=== PATIENT | male | born 1945 | race Caucasian/White ===

== ENCOUNTER 2020-10-04 19:21 | Inpatient (IN) | payer MEDICARE ==
[~2020-10-04] VITALS: Ht 182.9 cm; Wt 83.9 kg
--- NOTE | 2020-10-04 19:27 | NUR ---
Dr. Moulton at bedside for MSE.
[2020-10-04] MEDS ORDERED: ACET-2154 PO (19:38)
[2020-10-04] MEDS ORDERED: ATOR20TA PO (19:38)
[2020-10-04] MEDS ORDERED: LISI20TA30 PO (19:38)
[2020-10-04] MEDS ORDERED: MAG30ORA PO (19:38)
[2020-10-04] MEDS ORDERED: NICO1PAT44 TP (19:38)
--- NOTE | 2020-10-04 20:17 | NUR ---
Patient will be going to MHU room 145B
--- NOTE | 2020-10-04 20:49 | NUR ---
Report given to CADE Mtz @ [facility]. Per charhouse worker patient will be transported to inpatient in about 30 minutes.
--- NOTE | 2020-10-04 21:34 | NUR ---
Patient transported to MHU in stable condition.
[2020-10-04] MEDS ORDERED: ACETAMINOPHEN 325 MG TABLET PO PRN (21:45)
[2020-10-04] MEDS ORDERED: MAGNESIUM HYDROXIDE 30 ML LIQUID UDC PO PRN (21:45)
[2020-10-04] MEDS ORDERED: MAG HYDROX/AL HYDROX/SIMETH 30 ML LIQUID UDC PO PRN (21:45)
[2020-10-04] MEDS ORDERED: BLOOD SUGAR DIAGNOSTIC 1 EACH STRIP VI ONE (21:45)
[2020-10-04] MEDS ORDERED: TEMAZEPAM 7.5 MG CAPSULE PO PRN (21:45)
[2020-10-04 21:47] VITALS: BP 119/80
[2020-10-04] MEDS ORDERED: ASPI81TA31 PO (21:58)
--- NOTE | 2020-10-04 23:00 | NUR ---
GPS NOTE: Patient is a 73 year old male, brought in by ambulance on a 5150 from [facility]. Patient is on a 5150 for DTO. Per hold, the traffic control specialist department was sent out to the patients residence because he was threatening " To kill my girlfriend " with a knife. Patient stated " I can't take this anymore. I am going to kill her". " I am at the point where I can't control it". It is noted that the patient was under the influence of alcohol at that time. Upon face to face evaluation, the patient was calm and cooperative. Oriented to the situation and was telling the functional tester typewriters that he drinks daily. He has had the same girlfriend for many years and all she does is sit around the place and " Insults me". Patients appearance was disheveled and unkept, smelling of cigarettes. The patient claimed to be a pack a day smoker, with only medical history being hypertension. This functional tester typewriters was able to engage in meaningful conversation with the patient, oriented him to the rules of the unit and provided him with an Advisement and Patients right handbook. VS are stable and patients belongings were locked up in the safe. The patient had a snack and a shower , the went to bed. Rubber Mixer is continuing to round frequently and monitor patient for safety and any assaultive or combative behavior. None noted at this time.
[2020-10-05 07:30] VITALS: BP 140/84
[2020-10-05 08:00] VITALS: BP 140/84
[2020-10-05] MEDS: LORAZEPAM 0.5 MG TABLET PO PRN ×2 (08:33→21:07)
[2020-10-05] MEDS ORDERED: NICOTINE 21 MG/24HR PATCH TD SCH (09:00)
[2020-10-05 16:00] VITALS: BP 122/71
[2020-10-05 20:00] VITALS: BP 136/88
[2020-10-05] MEDS: GABAPENTIN 100 MG CAPSULE PO SCH (21:07)
--- NOTE | 2020-10-06 06:25 | NUR ---
Received patient, calm and cooperative . Bar Manager assisted patient at the start of the shift to call his girlfriend. The conversation seemed pleasant and no arguing was observed. Patient slept for 8.15 hours. No behavioral escalation noted by this physician underwriter since the patient was admitted.
[2020-10-06 07:30] VITALS: BP 125/84
--- NOTE | 2020-10-06 08:00 | NUR ---
received report from CADE Mtz. All questions, comments, and concerns were addressed. Received patient resting quietly in his assigned bed. bed is in low and locked position. patient is arousable to name.
[2020-10-06] MEDS: ATORVASTATIN 20 MG TABLET PO SCH (08:55)
[2020-10-06] MEDS: ASPIRIN 81 MG TAB.CHEW PO SCH (08:55)
[2020-10-06] MEDS: LISINOPRIL 20 MG TABLET PO SCH (08:55)
[2020-10-06] MEDS: NICOTINE 14 MG/24HR PATCH TD SCH (08:55)
--- NOTE | 2020-10-06 10:26 | NUR ---
Firearms Report: Brine Supervisor completed and submitted a [employer] firearms report for 5150 grave disability certification. A copy of report has been placed in patient chart.
--- NOTE | 2020-10-06 10:42 | NUR ---
patient is alert and oriented. this patient is cooperative, redirectable and has pleasant interaction with staff. he is anxious. patient is adherent with medication, no adverse reaction noted. dressed appropriately in hospital gown. denies SI/HI, denies AH/VH. patient is able to tolerate food and fluids. he is able to ambulate independently and is motivated to perform self care and ADL's. patient encouraged to participate in the unit therapeutic milieu and groups. educated about impulse control.
--- NOTE | 2020-10-06 10:52 | NUR ---
SW Family Contact: Patient does not have any family contact at this time.
--- NOTE | 2020-10-06 10:52 | NUR ---
SW Initial Discharge Plan: Patient currently resides at [address], [place] [address]; ([phone]). Patient does not have any family to contact at this time. Patient would want this SW to find him a nursing facility. This SW will work with the MD and treatment team to help coordinate proper discharge.
--- NOTE | 2020-10-06 10:53 | NUR ---
SW Substance Abuse Intervention: Patient was provided with a brief substance abuse intervention and referred to [facility] ([phone]), [facility] ([phone]), and [facility] ([phone]). Patient expressed that he has been drinking beer frequently and has started drinking at the age of 14.
--- NOTE | 2020-10-06 11:14 | NUR ---
[facility]'s Department: This SW contacted [facility] ([phone]) to confirm if weapons are in patient's house per 5150 hold. Per 5150 hold, deputy Banegas was at patient's resident, however, crisis retail event assistant Sreedhar Salter ([phone]) noted "weapons are not secured". This SW spoke with evan Loera ([phone]) who requested for Deputy Banegas to contact this SW to confirm more information if weapons are removed or not.
--- NOTE | 2020-10-06 11:18 | NUR ---
SNF Referral: This SW faxed clinicals to Cecelia from [facility] ([phone]) for placement. This SW faxed H & P notes, progress notes, and medication list.
--- NOTE | 2020-10-06 12:56 | NUR ---
[place] Contact: This SW spoke with Deputy Banegas (Nelson #[id number]) who stated that patient had a fishing knife at home and that they do not confiscate it.
--- NOTE | 2020-10-06 13:04 | NUR ---
SNF Referral: This SW received a phone call from Cecelia at [facility] ([phone]) who stated patient is accepted.
[2020-10-06 15:12] VITALS: BP 140/84
--- NOTE | 2020-10-06 15:33 | NUR ---
Individual Therapy: household worker met with patient for brief counseling and assessed for patient's presenting problem aggressive behavior. Patient appeared to be sad and withdrawn. Patient was calm and cooperative, however, patient appeared quiet and did not verbalize with this SW. Patient wanted to rest.
[2020-10-06] MEDS: GABAPENTIN 100 MG CAPSULE PO SCH (20:21)
[2020-10-06 20:30] VITALS: BP 136/74
--- NOTE | 2020-10-07 06:29 | NUR ---
Gps: Remain calm and cooperative . Patient slept for 8 hours. No behavioral escalation noted by this bond writer since the patient was admitted.
[2020-10-07 07:30] VITALS: BP 112/62
[2020-10-07] MEDS: ASPIRIN 81 MG TAB.CHEW PO SCH (08:25)
[2020-10-07] MEDS: NICOTINE 14 MG/24HR PATCH TD SCH (08:25)
[2020-10-07] MEDS: ATORVASTATIN 20 MG TABLET PO SCH (08:26)
[2020-10-07] MEDS: LISINOPRIL 20 MG TABLET PO SCH (08:26)
--- NOTE | 2020-10-07 10:48 | NUR ---
JODY Family Contact: This SW received a phone call from patient's significant other Poonam ([phone]) and she insisted on patient being discharged from the hospital today. She stated he is feeling well and needs to come back home. Poonam expressed that she is not feeling well and needs patient home. This SW expressed that if she is feeling unwell to call 911 or go to the nearest ER. Poonam stated "No, not like that, I need him not the ER or 911". JODY educated her about the 5150 hold and she stated she is aware. JODY expressed patient will need to continue his treatment here at the hospital until discharged. JODY is concerned about the patient's home environment and will make an APS report.
--- NOTE | 2020-10-07 10:56 | NUR ---
APS Report: This SW made an APS report through [facility] (Intake ID [id number]) for suspected neglect of care at home.
--- NOTE | 2020-10-07 13:34 | NUR ---
SW Note: This SW spoke with patient in regards to his discharge planning. Patient appeared confused and disorganized. He did state that "I do not want to go back home and I do not have a girlfriend". This SW expressed that if he would want this SW to find him a nursing facility he stated "yes, I want to continue my care".
[2020-10-07] MEDS ORDERED: LORAZEPAM 1 MG TABLET PO PRN (14:15)
--- NOTE | 2020-10-07 15:40 | NUR ---
SW Coordination of Care: This fha underwriter spoke with back shoe worker Sudha to arrange appointment. Patient will follow up at [facility], Jess Rivera PA-C, Fortino Rivera Jr., M.D located at [address] [place] [address] [address] [address]; ([phone]) with (Mri Supervisor) Dr. Rivera on October 2:30PM. This SW requested to refer pt to a psychiatrist. This SW faxed clinical to the office (F: [phone]).
[2020-10-07 16:00] VITALS: BP 100/69
--- NOTE | 2020-10-07 16:56 | NUR ---
patient is alert and oriented x3, denies any SI/HI.patient compliant with all AM medication, remains clam and cooperative behavioral .attendance and participated group activity ,talking about discharge plan with psychiatrist. will continue close monitoring.
[2020-10-07 20:26] VITALS: BP 107/65
[2020-10-07] MEDS: GABAPENTIN 100 MG CAPSULE PO SCH (20:37)
--- NOTE | 2020-10-08 06:29 | NUR ---
Gps: Remain calm and cooperative . Patient slept for 7 hours through the night. No behavioral escalation noted. slept 7 hrs through the night.
[2020-10-08 07:06] LABS: BASOPHILS % (AUTO) 0.7 % (0.0-2.0); EOSINOPHILS # (AUTO) 0.3 K/uL (0.0-0.7); EOSINOPHILS % (AUTO) 3.7 % (0.0-7.0); HEMATOCRIT 41.4 % (36.7-47.1); MEAN CORPUSCULAR HEMOGLOBIN 34.2 uug (23.8-33.4); MEAN CORPUSCULAR HGB CONC 34 g/dL (32.5-36.3); MEAN CORPUSCULAR VOLUME 101.4 fL (73.0-96.2); MONOCYTES % (AUTO) 14.6 % (0.0-11.0); NEUTROPHILS # (AUTO) 4.7 K/uL (1.8-8.9); PLATELET COUNT (AUTO) 194 K/uL (152-348); RED BLOOD CELL COUNT(AUTO) 4.08 MIL/uL (4.06-5.63)
[2020-10-08 07:11] LABS: CREATININE 1.1 mg/dL (0.6-1.3); POTASSIUM 4.4 mmol/L (3.5-5.1)
[2020-10-08 07:30] VITALS: BP 127/72
[2020-10-08] MEDS: NICOTINE 14 MG/24HR PATCH TD SCH (08:31)
[2020-10-08] MEDS: LISINOPRIL 20 MG TABLET PO SCH (08:32)
[2020-10-08] MEDS: ATORVASTATIN 20 MG TABLET PO SCH (08:32)
[2020-10-08] MEDS: ASPIRIN 81 MG TAB.CHEW PO SCH (08:32)
--- NOTE | 2020-10-08 11:09 | NUR ---
SW Friend Contact: This SW spoke with patient's friend Lorrie ([phone]) who stated he will be picking up patient tomorrow or his daughter. This SW will confirm later on as he stated to contact around 2PM to confirm.
--- NOTE | 2020-10-08 11:21 | NUR ---
SW note: This SW and doctor met with patient and patient stated he wants to go back home and not to a nursing facility. He stated that he has the support at home.
[2020-10-08 16:00] VITALS: BP 116/74
[2020-10-08] MEDS: GABAPENTIN 100 MG CAPSULE PO SCH (20:19)
[2020-10-08 20:27] VITALS: BP 110/71
--- NOTE | 2020-10-09 06:43 | NUR ---
PT SLEPT 8.15 H. PT IN NO ACUTE DISTRESS. PRESCRIBED MEDICATION GIVEN AND PT TOLERATED IT WELL. PT VITAL SIGNS STABLE. PT COMPLIANT WITH CARE. SAFETY AND COMFORT PROVIDED. WILL ENDORSE TO INCOMING NURSE FOR CONTINUITY OF CARE.
[2020-10-09 07:30] VITALS: BP 118/68
--- NOTE | 2020-10-09 07:30 | NUR ---
Received patient awake in bed. Alert and oriented x 3. Cooperative and calm on approach. No signs of acute distress. Bed locked and in low position. Side rails x 3. For discharge today. Will continue to monitor.
--- NOTE | 2020-10-09 08:09 | NUR ---
Discharge Note: Patient will be discharged home located at [address], [place] [address]; ([phone]). Per patients friend Lorrie ([phone]) who stated his friend Boy Monte will chicken picker patient at 12PM. Patients significant other, Poonam ([phone]) is aware and agreeable with this plan. Patient appears alert and oriented x4 and wants to go back home. Patient denies visual/auditory hallucination. Patient denies suicidal or homicidal ideation. [facility], Jess Rivera PA-C, Fortino Rivera Jr., M.D located at [address], [place] [address]; ([phone]) appointment on with (Biometrics Experimentalist) Dr. Rivera on October 17 at 2:30PM and will monitor and provide psychotropic medications. requested cashier receptionist Sudha to refer pt. to a psychiatrist. Patient was provided referrals to the following substance abuse programs for substance abuse ([facility] ([phone]); [facility] [address] [place] [address] ([phone]); [facility] [address] [place] [address] ([phone]); [facility] ([phone]); [facility] ([phone]); [facility] ([phone]); [facility] ([phone]). Patient presented with euthymic and congruent affect.
[2020-10-09 08:24] VITALS: BP 118/68
[2020-10-09] MEDS: LISINOPRIL 20 MG TABLET PO SCH (08:24)
[2020-10-09] MEDS: NICOTINE 14 MG/24HR PATCH TD SCH (08:24)
[2020-10-09] MEDS: ASPIRIN 81 MG TAB.CHEW PO SCH (08:24)
[2020-10-09] MEDS: ATORVASTATIN 20 MG TABLET PO SCH (08:24)
--- NOTE | 2020-10-09 15:04 | NUR ---
SW Family Contact: This SW received a phone call from patient's daughter Erika ([phone]) who stated they are unable to olive picker patient and she will order Uber for patient to pick him up from the hospital. She reported she bought him a bus ticket and will send confirmation.
--- NOTE | 2020-10-09 15:47 | NUR ---
JODY Family Contact: Daughter Erika ([phone]) stated that sent [employer] school bus driver/teacher assistant confirmation for bus ticket [id number] through [employer]. This SW confirmed with school bus driver/teacher assistant Glynn who stated he has the bus ticket and will assist patient.
--- NOTE | 2020-10-09 15:50 | NUR ---
Patient discharged to home. Patient alert and oriented x 3. no signs of distress. vital signs stable. discharge instructions given to patient. belongings list signed and belongings given to patient. ID band removed. Patient's daughter stated they are unable to pick patient up. Patient's daughter arranged for Uber to pick patient up from hospital and drop patient off to bus station. Patient's daughter sent bus confirmation for his bus ride home. Patient has follow up with [facility] on October 17, 2020 at 2:30pm. Patient is aware. Patient left via Uber.
== END 2020-10-09 15:45 | disposition home or self-care (01) | DRG 885 ==
LOC: ER 19:25 → GPS 21:20
PROVIDERS: ADMIT Psychiatry & Neurology Psychiatry; ATTEND Nurse Practitioner Acute Care
DX: F39 Unspecified mood [affective] disorder (principal); F23 Brief psychotic disorder; E87.1 Hypo-osmolality and hyponatremia; F41.9 Anxiety disorder, unspecified; I10 Essential (primary) hypertension; F17.210 Nicotine dependence, cigarettes, uncomplicated; E86.1 Hypovolemia; E78.1 Pure hyperglyceridemia; F10.10 Alcohol abuse, uncomplicated
CPT/HCPCS: 36415; 85025; 93005; A4663